=== PATIENT | female | born 1935 | race Caucasian/White ===

== ENCOUNTER 2019-01-07 20:01 | Emergency (ER) | payer MEDICARE, OTHER ==
[2019-01-07 20:33] VITALS: TEMP 98; BMI 25.8
[2019-01-07 22:18] LABS: BASO % 0.4 % (0-2.0); EOS % 0.7 % (0-4.5); HEMATOCRIT 38.3 % (32.4-45.2); HEMOGLOBIN 12.9 GM/dL (10.7-15.3); LYMPH % 18.2 % (8-40); MCHC 33.7 g/dl (32.0-36.0); MEAN CELL VOLUME 83.1 fl (80-96); MEAN PLT VOLUME 10.7 fl (7.5-11.1); MONO % 8.6 % (3.8-10.2); NEUT % 72.1 % (42.8-82.8); PLATELET COUNT 143 K/MM3 (134-434); RBC 4.61 M/mm3 (3.60-5.2); WHITE BLOOD COUNT 11.2 K/mm3 (4.0-10.0)
[2019-01-07 22:46] LABS: ALBUMIN 3.7 g/dl (3.4-5.0); BILIRUBIN,TOTAL 0.5 mg/dL (0.2-1); BLOOD UREA NITROGEN 51.1 mg/dL (7-18); CALCIUM 9.7 mg/dL (8.5-10.1); CREATININE 1.3 mg/dL (0.55-1.3); POTASSIUM 3.4 mmol/L (3.5-5.1); TOT PROT 7.6 g/dl (6.4-8.2)
[2019-01-07 23:41] LABS: EPI CELLS 5.6 /HPF (0-5/HPF); HYALINE CASTS 4 /lpf (0-8); URINE APPEARANCE CLEAR; URINE BACTERIA 4.7 /hpf (NEGATIVE); URINE BILIRUBIN NEGATIVE (NEGATIVE); URINE COLOR YELLOW; URINE GLUCOSE (UA) NEGATIVE (NEGATIVE); URINE KETONE NEGATIVE (NEGATIVE); URINE LEUK ESTERASE 2+ (NEGATIVE); URINE NITRITE NEGATIVE (NEGATIVE); URINE PROTEIN 1+ (NEGATIVE); URINE RBC 3 /hpf (0-4); URINE UROBILINOGEN 0.2 mg/dL (0.2-1.0); URINE WBC 26 /hpf (0-5)
[2019-01-07] MEDS ORDERED: CEFTRIAXONE 1,000 MG in DEXTROSE 5%-WATER - 50 ML IVPB STA (23:55)
[2019-01-08] MEDS ORDERED: CEFTRIAXONE 1 GM/50 ML BAG ONE (00:05)
--- NOTE | 2019-01-08 00:16 | PDOC ---
Documentation entered by Elizabeth Peters SCRIBE, acting as scribe for Jayla Garrison MD. Jayla Garrison MD: This documentation has been prepared by the Lorraine moy Xhesika, SCRIBE, under my direction and personally reviewed by me in its entirety. I confirm that the documentation accurately reflects all work, treatment, procedures, and medical decision making performed by me. 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 Family at bedside translating. As per family, patient ambulates with a walker at baseline and needs assistance in addition to her walker. Patient ate breakfast, lunch, and dinner. Patient took her morning dose of medication. The patient denies chest pain, headache and dizziness. Denies fever, chills, cough, nausea, vomiting, diarrhea and constipation. Denies dysuria, frequency, urgency and hematuria. Allergies: NKDA Past History - Past Medical History Allergies/Adverse Reactions: Allergies Allergy/AdvReac Type Severity Reaction Status Date / Time No Known Allergies Allergy Verified 01/07/19 20:30 Home Medications: Ambulatory Orders Amlodipine Besylate [Norvasc -] 5 mg PO DAILY 01/07/19 Aspirin [ASA -] 81 mg PO DAILY 01/07/19 Calcium Carbonate Suspension - [Calcium Carb Oral Suspension -] 500 mg PO DAILY 01/07/19 Colchicine [Colcrys] 0.6 mg PO DAILY 01/07/19 Enalapril Maleate [Vasotec -] 10 mg PO DAILY 01/07/19 Glimepiride [Amaryl -] 4 mg PO DAILY@0700 01/07/19 Sulfamethoxazole/Trimethoprim [Bactrim Ds -] 1 tab PO BID #14 tablet MDD 2 tabs 01/08/19 COPD: No Diabetes: Yes HTN: Yes - Suicide/Smoking/Psychosocial Hx Smoking History: Never smoked Have you smoked in the past 12 months: No Information on smoking cessation initiated: No Hx Alcohol Use: No Drug/Substance Use Hx: No Review of Systems - Review of Systems Able to Perform ROS?: Yes Comments:: 01/07/19 21:08 GENERAL/CONSTITUTIONAL: No fever or chills. No weakness. HEAD, EYES, EARS, NOSE AND THROAT: No change in vision. No ear pain or discharge. No sore throat. CARDIOVASCULAR: No chest pain or shortness of breath. RESPIRATORY: No cough, wheezing, or hemoptysis. GASTROINTESTINAL: No nausea, vomiting, diarrhea or constipation. GENITOURINARY: No dysuria, frequency, or change in urination. MUSCULOSKELETAL: (+) R knee weakness and burning. No neck or back pain. SKIN: No rash NEUROLOGIC: No headache, vertigo, loss of consciousness, or change in strength/ sensation. ENDOCRINE: No increased thirst. No abnormal weight change. HEMATOLOGIC/LYMPHATIC: No anemia, easy bleeding, or history of blood clots. ALLERGIC/IMMUNOLOGIC: No hives or skin allergy. *Physical Exam - Vital Signs Last Vital Signs Temp Pulse Resp BP Pulse Ox 98.0 F 104 H 19 152/88 100 01/07/19 20:23 01/07/19 20:23 01/07/19 20:23 01/07/19 20:23 01/07/19 20:23 - Physical Exam Comments: 01/07/19 21:08 ADULT EXAM GENERAL: Awake, alert, and conversive. HEAD: No signs of trauma EYES: (+) PEG L cornea. (+)Legally bind L eye ENT: (+) Poor dentition NECK: Normal ROM, supple, no lymphadenopathy, JVD, or masses LUNGS: Breath sounds equal, clear to auscultation bilaterally. No wheezes, and no crackles HEART: (+) tachycardic. Regular rate and rhythm, normal S1 and S2, no murmurs, rubs or gallops ABDOMEN: Soft, nontender, normoactive bowel sounds. No guarding, no rebound. No masses EXTREMITIES: No edema. No clubbing or cyanosis. No cords, erythema, or tenderness NEUROLOGICAL: Awake, alert, and conversive. SKIN: Warm, Dry, normal turgor, no rashes or lesions noted. ED Treatment Course - LABORATORY CBC & Chemistry Diagram: 01/07/19 21:56 01/07/19 21:56 Medical Decision Making - Medical Decision Making 01/07/19 21:52 83-year-old female came in with family because of knee pain and burning and increased weakness. -at baseline she uses a walker to ambulate and also still requires assistance, but today she seemed more unsteady. Past medical history hypertension, [id number] diabetes, blind in the left eye -her primary care physician is in [place] 01/07/19 23:58 physical exam her right knee has no erythema, no there is no patellar ballottement, she is able to fully extend and flex her right leg DP and PT pulses are intact and sensation is intact. She does not have any history of recent trauma. She, however, did fall a years back when she lived in [place] and has had intermittent chronic knee pain. UA shows a mild UTI. She'll be started on antibiotics 01/07/19 23:59 troponin is negative Chest x-ray no infiltrates.no effusions, no ptx imp uti discussed with the family and they feel that she will take her medications and they will have her folllow up with her PCP she does live at home with them *DC/Admit/Observation/Transfer Diagnosis at time of Disposition: Hyperglycemia, Chronic pain of right knee UTI (urinary tract infection) Qualifiers: Urinary tract infection type: site unspecified Hematuria presence: without hematuria Qualified Code(s): N39.0 - Urinary tract infection, site not specified - Discharge Dispostion Disposition: HOME Condition at time of disposition: Good - Prescriptions Prescriptions: Sulfamethoxazole/Trimethoprim [Bactrim Ds -] 1 tab PO BID #14 tablet MDD 2 tabs - Referrals - Patient Instructions Printed Discharge Instructions: DI for Urinary Tract Infection (UTI) Additional Instructions: Please follow up with your regular physician Please orange picker your medication at your pharmacy Return for worsening symptoms - Post Discharge Activity
[2019-01-08 00:37] VITALS: BP 155/72; PULSE 98
--- NOTE | 2019-01-08 13:33 | EKG ---
Test Reason : Blood Pressure : / mmHG Vent. Rate : 099 BPM Atrial Rate : 099 BPM P-R Int : 194 ms QRS Dur : 078 ms QT Int : 356 ms P-R-T Axes : 036 -43 019 degrees QTc Int : 456 ms POOR DATA QUALITY, INTERPRETATION MAY BE ADVERSELY AFFECTED NORMAL SINUS RHYTHM LEFT AXIS DEVIATION VOLTAGE CRITERIA FOR LEFT VENTRICULAR HYPERTROPHY CANNOT RULE OUT SEPTAL INFARCT , AGE UNDETERMINED ABNORMAL ECG NO PREVIOUS ECGS AVAILABLE Confirmed by OJ CARD MD ([id number]) on 01/08/2019 1:33:30 PM Referred By: Confirmed By:OJ CARD MD
== END 2019-01-08 00:37 | disposition home or self-care (01) ==
LOC: JER 20:01
DX: N39.0 Urinary tract infection, site not specified (principal); E11.65 Type 2 diabetes mellitus with hyperglycemia; Z79.84 Long term (current) use of oral hypoglycemic drugs; M25.561 Pain in right knee; G89.29 Other chronic pain; I10 Essential (primary) hypertension; H54.62 Unqualified visual loss, left eye, normal vision right eye; Z99.89 Dependence on other enabling machines and devices
CPT/HCPCS: 36415; 71045-TC-FY; 80053; 81003; 82550; 83690; 84484; 85025; 93005; 93010; 99283-25